=== PATIENT | male | born 1965 | race Caucasian/White ===

== ENCOUNTER 2016-06-26 21:10 | Inpatient (IN) | payer BC ==
[~2016-06-26] VITALS: Ht 182.9 cm; Wt 140.0 kg
--- NOTE | ~2016-06-26 | HP ---
PATIENT'S NAME: SARA FUCHS [facility] AGE: 50 Y [address] ROOM: [address] [place], [place] [address] LOCATION: G3N ADMIT DATE: 06/26/2016 History & Physical DISCHARGE DATE: FAMILY PHYSICIAN: Satya Arias MD ATTENDING PHYSICIAN: MARY BRUCE DATE OF SERVICE: 06/26/2016 CHIEF COMPLAINT: Postoperative wound infection, status post T9 to L2 posterior instrumented fusion done on 06/14/2016. HISTORY OF PRESENT ILLNESS: The patient is a 50-year-old male who presented to the emergency with a 2-day history of discharge from the thoracolumbar incision. The patient underwent a T9 to L2 posterior instrumented fusion for a T12 fracture by Dr. Solomon on 06/14/2016. The patient was subsequently discharged to home on 06/18/2016. The patient was doing very well until two days prior to admission when his noticed discharge from the lower part of the incision. The patient was seen by his family physician earlier today, who started the patient on antibiotics. I was called by the patient's indicating that she noticed a significant leakage from the lower part of the incision. I asked them to present to the emergency for assessment. I met them in the emergency and they both confirmed the history. The patient reported back pain. He denied pain on his lower extremities. He denied fever or chills. PHYSICAL EXAMINATION: NEUROLOGIC: The patient is cooperative and pleasant. He is alert and oriented. Motor examination of the lower extremities was grossly normal. BACK AND SKIN: It showed evidence of a long thoracic-lumbar midline incision. The sutures are still in place. Then, I noticed a significant leakage from the lower part of the incision and poor tissue healing. I also noticed erythema around the incision mostly at the lower part of the wound. LABORATORY AND IMAGING DATA: Investigations: Thoracic-lumbar spine CT scans and those showed satisfactory placement of the hardware. They also showed collection in the lower part of the wound. IMPRESSION AND PLAN: A 50-year-old male patient, who underwent the above-mentioned surgery by Dr. Solomon on 06/14/2016, is presenting with a 2-day history of leakage from the lower part of his incision. His imaging showed a subfascial collection at the lower part of the incision. Based on the patient's presentation, I think this patient has postoperative wound infection. PATIENT'S NAME: SARA FUCHS [facility] AGE: 50 Y [address] ROOM: [address] [address] LOCATION: [facility] ADMIT DATE: 06/26/2016 History & Physical DISCHARGE DATE: FAMILY PHYSICIAN: Satya Arias MD ATTENDING PHYSICIAN: MARY BRUCE Plan: 1. Admission to the hospital. 2. Pain management. 3. I recommended exploration of the lower part of the wound, incision and drainage, and possibly application of VAC dressing. 4. I discussed the situation with the patient and his and indicated that the wound examination is very concerning. I recommended the above- mentioned surgery to try to prevent extension of the infection to the existing hardware. I discussed the procedure in detail, the benefits and risks associated with it. The patient will be admitted tonight and he will undergo the procedure tomorrow. It was pleasure taking care of this patient and thanks for having us involved. MD CJ FARNSWORTH/modl /[id number] CC: MD Satya Sandoval MD D: [id number] T: [id number] HISTORY & PHYSICAL
--- NOTE | ~2016-06-26 | DS ---
PATIENT'S NAME: SARA FUCHS [facility] AGE: 50 Y [address] ROOM: [address] [address] LOCATION: [facility] ADMIT DATE: 06/26/2016 Discharge Summary DISCHARGE DATE: 07/08/2016 FAMILY PHYSICIAN: Satya Arias MD ATTENDING PHYSICIAN: Dora Franks REASON FOR ADMISSION: The patient was admitted with presumed wound infection following previous thoracolumbar fusion. TREATMENT RENDERED: The patient was taken to the operating room and underwent incision and drainage of the wound. He was eventually taken back to surgery on July 05, 2016 for closure of the I and D wound. The patient was also followed up by infectious disease doctors. He did well and was eventually well enough to go home on July 08, 2016. His incision was looking great at the time of discharge. He was ambulating with little or no pain. He will be followed up as needed in the clinic. FINAL DIAGNOSES: 1. Thoracolumbar wound infection, status post incision and drainage. 2. Status post thoracolumbar fusion for a spine fracture. DORA FRANKS MD CNO/modl /[id number] CC: Satya Arias MD d: 07/13/16 0237 t: 07/15/16 1040, DISCHARGE SUMMARY
--- NOTE | ~2016-06-26 | OR ---
PATIENT'S NAME: SARA FUCHS [facility] AGE: 50 Y [address] ROOM: [place] [address] LOCATION: [facility] ADMIT DATE: 06/26/2016 OR/Procedure Report DISCHARGE DATE: FAMILY PHYSICIAN: Satya Arias MD ATTENDING PHYSICIAN: MADHURI RODAS SURGEON: Madhuri Rodas MD KNOCKDOWN WORKER: DATE OF PROCEDURE: 06/27/2016 ANESTHESIA: General. COMPLICATIONS: None. ESTIMATED BLOOD LOSS: Minimal. PREOPERATIVE DIAGNOSIS: Postoperative wound infection. POSTOPERATIVE DIAGNOSIS: Postoperative wound infection. PROCEDURE PERFORMED: 1. Incision and drainage of a subfascial thoracolumbar wound. 2. Application of a wound VAC dressing. CLINICAL HISTORY/INDICATIONS FOR PROCEDURE: The patient is a 50-year-old male patient, who underwent T9 to L2 posterior instrumented fusion for an unstable T12 fracture by Dr. Solomon on 06/14/2016, who presented to the hospital with a 2-day history of discharge from the lower part of the incision. The wound examination was very concerning for postoperative surgical wound infection. I recommended the above-mentioned surgery to the patient. The patient was brought in for the surgery. DESCRIPTION OF PROCEDURE: The patient was seen in the preoperative care unit and the correct side was marked. Then, he was transferred to the main operating theater, was given general anesthetic and underwent endotracheal intubation without complications. Preoperative antibiotics were held. The patient was then turned to prone position on a gel-padded Brendon table and all his joints and bony prominences were securely padded. The thoracolumbar region was then prepped and draped as per usual. I started by opening the lower part of the incision. The skin sutures were removed as well as the subcutaneous and fascial sutures. Immediately, a large amount of subfascial fluid escaped under moderate pressure. The fluid collection was completely evacuated. I also obtained multiple cultures from the fluid in the deep part of the wound. I also examined the paraspinal muscles and subcutaneous tissue. Then, I felt that the tissue vascularity was PATIENT'S NAME: SARA FUCHS [facility] AGE: 50 Y [address] ROOM: [place] [address] LOCATION: [facility] ADMIT DATE: 06/26/2016 OR/Procedure Report DISCHARGE DATE: FAMILY PHYSICIAN: Satya Arias MD ATTENDING PHYSICIAN: MADHURI RODAS. Then, I proceeded to irrigate the wound. The wound was irrigated with bacitracin-containing irrigation. Then, I applied a wound VAC dressing to the lower part of the wound to try to improve the tissue vascularity and treat the infection. The VAC was applied and it was tested. The VAC dressing worked very well. The upper part of the wound was covered with dressing. The patient was then turned to supine position and extubated. At the end of the operation, the instrument and sponge counts were correct. The patient tolerated the operation without complications. MADHURI RODAS MD AB/modl /[id number] CC: MD Satya Sandoval MD d: 06/27/16 2348 t: 06/29/16 1237, OPERATIVE SUMMARY
--- NOTE | ~2016-06-26 | OR ---
PATIENT'S NAME: SARA FUCHS [facility] AGE: 50 Y [address] ROOM: [place] [address] LOCATION: [facility] ADMIT DATE: 06/26/2016 OR/Procedure Report DISCHARGE DATE: FAMILY PHYSICIAN: Satya Arias MD ATTENDING PHYSICIAN: MADHURI RODAS SURGEON: Madhuri Rodas MD LEARNING DISABILITIES TEACHER: DATE OF PROCEDURE: 07/01/2016 ANESTHESIA: General. COMPLICATIONS: None. ESTIMATED BLOOD LOSS: Minimal. PREOPERATIVE DIAGNOSIS: Postoperative thoracolumbar wound infection, existing VAC dressing. POSTOPERATIVE DIAGNOSIS: Postoperative thoracolumbar wound infection, existing VAC dressing. PROCEDURES: 1. Incision and drainage of thoracolumbar subfascial wound for infection. 2. Application of VAC dressing. CLINICAL HISTORY: The patient is a 50-year-old male patient, who underwent T9- L2 posterior instrumented fusion for T12 fracture on June 14, 2016, by Dr. Solomon; was admitted to the hospital on June 26, 2016, with significant leakage from his wound. He was taken to surgery on June 27 and the lower part of the wound was opened. Immediately, a large amount of subfascial fluid escaped under moderate pressure. Multiple cultures were taken from the fluid and the deep tissue. VAC dressing was applied and the patient was started on antibiotics. The wound culture came back positive for staphylococcus epidermidis that is sensitive to vancomycin. The patient's antibiotics were changed to daptomycin. I recommended the above mentioned surgery to the patient and his to explore the wound and hopefully close it. I discussed the risks and benefits associated with it. The patient was interested in proceeding, so he was brought in for the surgery. DESCRIPTION OF PROCEDURE: The patient was seen in the preoperative care unit and the correct side was marked. Then, he was transferred to the main operating theater, was given general anesthetic and underwent endotracheal intubation without complications. Preoperative antibiotics were continued. The patient was then turned to prone position on a gel padded Brendon table and all his joints and bony prominences were securely padded. The VAC PATIENT'S NAME: AFSHIN [facility] AGE: 50 Y [address] ROOM: [address] [address] LOCATION: [facility] ADMIT DATE: 06/26/2016 OR/Procedure Report DISCHARGE DATE: FAMILY PHYSICIAN: Satya Arias MD ATTENDING PHYSICIAN: MADHURI RODAS dressing was removed. Immediately, I noticed significant erythema along the closed part of the wound. I also noticed avascular tissue along the incision. The surgical site was then prepped and draped as per usual. I started by removing the VAC sponge from the lower part of the wound. The tissues in that region were healthier than the first time. Then, I proceeded to open the rest of the incision. The existing sutures were removed. Subcutaneous sutures were also removed and immediately, I came across very avascular subcutaneous tissue with obvious signs of infection. The thoracolumbar fascia sutures were also removed and the hardware was exposed. I also noticed significant avascularity of the paraspinal muscles. I first started by removing the autograft/allograft bone along the hardware. I then removed all the avascular tissue. Then, the wound was copiously irrigated with bacitracin-containing irrigation. Hemostasis was maintained. Then, I proceeded to apply a new VAC dressing. The sponges were placed in. The dressing was applied and the VAC was tested. We had good seal and no leakage. I was satisfied with all steps of the operation. At the end of the operation, the instrument and sponge counts were correct. The patient tolerated the operation without any complications. MADHURI RODAS MD AB/modl /[id number] CC: MD Dora Natarajan MD d: 07/01/16 1840 t: 07/02/16 0954, OPERATIVE SUMMARY
--- NOTE | ~2016-06-26 | PUL ---
PATIENT'S NAME: SARA FUCHS [facility] AGE: 50 Y [address] ROOM: [address] [address] LOCATION: G3N ADMIT DATE: 06/26/2016 Pulmonary DISCHARGE DATE: FAMILY PHYSICIAN: Satya Arias MD ATTENDING PHYSICIAN: MARY BRUCE NAME OF PROCEDURE: Overnight Pulse Oximetry DATE OF PROCEDURE: June 28 to June 29, 2016 REASON FOR EXAM: Nocturnal hypoxemia RESULTS: The test was performed on room air. The recording time was 8 hours, 6 minutes, and 24 seconds, with a total sampling time of 8 hours, 6 minutes, and 12 seconds. The highest pulse was 101, lowest pulse was 56, with a mean pulse of 65. The highest SpO2 was 97%, lowest SpO2 was 69%, with a mean SpO2 of 89.9%. The patient spent 1 hour, 50 minutes and 8 seconds with SpO2 less than 89%, representing 22.7% of the total sleep time. The desaturation event index was significantly elevated 40.2. PHYSICIAN INTERPRETATION: The patient has evidence of significant nocturnal hypoxia and would qualify for supplemental oxygen as per Medicare criteria. However, because of the severity of his nocturnal hypoxia with an elevated desaturation event index a sleep study is recommended at this time. MD VESNA BURGOS/suzette /[id number] dtt: 07/03/16 1522 , QUIRINO MARRERO dtd: 07/03/16 1326
--- NOTE | ~2016-06-26 | ER ---
PATIENT'S NAME: SARA FUCHS [facility] AGE: 50 Y [address] ROOM: [place] [address] LOCATION: [facility] ADMIT DATE: 06/26/2016 ER/Outpatient Report DISCHARGE DATE: FAMILY PHYSICIAN: Satya Arias MD ATTENDING PHYSICIAN: MARY RODAS TIME: I saw the patient at 2120 hours. CHIEF COMPLAINT: Mid back incisional drainage. HISTORY OF PRESENT ILLNESS: The patient is a 50-year-old male, who I believe has had surgery on 06/14/2016. The patient has had some drainage in the lower part of his incision. Initially, he saw his personal physician, Dr. Satya Arias in the clinic today and started on cephalexin. We got a call here in the emergency room from Dr. Rodas that the patient was coming to the emergency room for evaluation. Dr. Rodas wanted a CBC with differential, complete chemistry profile, clot bank with blood type and screen, Protime, PTT, 2-view chest x- ray, EKG, and a CT scan of the T6 to L5 noncontrast. Dr. Rodas was thinking that he would most likely take this patient back to operation, open his wound and irrigate the wound. The patient on arrival was awake and alert. He denied any recent fever, chills, sweats. No rigors. No pain in his back. No abdominal pain, nausea, vomiting, diarrhea. No chest pain, shortness of breath. No lightheadedness, dizziness, syncope, or near syncope. No fall or trauma. No recent colds, coughs, flu, fever, chills, or sweats. HOME MEDICATIONS: See attached medication list. ALLERGIES: NONE. SOCIAL HISTORY: The patient has a history of tobacco use, stopped 06/08/2016. Nondrinker. PAST MEDICAL HISTORY: Significant for dyslipidemia, sls-tgrsiqy-dlpjxzywr diabetes mellitus type 2, remote tobacco abuse. PAST SURGICAL HISTORY: Thoracic back surgery, 06/14/2016. REVIEW OF SYSTEMS: PATIENT'S NAME: SARA FUCHS [facility] AGE: 50 Y [address] ROOM: [place] [address] LOCATION: [facility] ADMIT DATE: 06/26/2016 ER/Outpatient Report DISCHARGE DATE: FAMILY PHYSICIAN: Satya Arias MD ATTENDING PHYSICIAN: MARY RODAS All systems reviewed by me are negative with the exception of those discussed in the history of present illness. PHYSICAL EXAMINATION: VITAL SIGNS: Temperature 98.1 tympanic, pulse 83, respirations 16, blood pressure 140/63, O2 saturation on room air is 93%. HEAD: Normocephalic. EYES, EARS, NOSE, AND THROAT: Clear, mucous membranes moist. NECK: No nuchal rigidity. No findings of adenopathy. No tenderness. SPINE: No deformities, does have an incision, mid thoracic back to the lumbar spine. There is minimal redness. There is no active drainage that I could see one on my examination. The dressings that he had on, when I examined him were dry. LUNGS: Clear. HEART: Regular. ABDOMEN: Soft, nondistended, nontender. Active bowel sounds. EXTREMITIES: Moves all 4 extremities. No peripheral edema, cyanosis, or deformity. Neurovascular intact. SKIN: Clear. Dr. Rodas came to the emergency department a few minutes after I got done examining the patient. IMPRESSION: Drainage from recent surgical incision, thoracic back. PLAN: We will proceed on Dr. Rodas's recommendations and discussion with the patient. Plan would be whether the patient is going to be taken back to operation or not, but that will be up to the patient and Dr. Rodas. MD NAYA SALTER/modl /[id number] d: 06/27/16 0634 t: 06/27/16 181, OUTPATIENT REPORT
--- NOTE | ~2016-06-26 | OR ---
PATIENT'S NAME: SARA FUCHS [facility] AGE: 50 Y [address] ROOM: [address] [address] LOCATION: [facility] ADMIT DATE: 06/26/2016 OR/Procedure Report DISCHARGE DATE: FAMILY PHYSICIAN: Satya Arias MD ATTENDING PHYSICIAN: Dora Franks SURGEON: Dora Franks MD OPERATOR BEARER SYSTEMS: Leah Hernández. DATE OF PROCEDURE: 07/05/2016 PREOPERATIVE DIAGNOSIS: Lumbar fusion wound infection. POSTOPERATIVE DIAGNOSIS: Lumbar fusion wound infection. PROCEDURE PERFORMED: Closure of lumbar fusion incision performed for wound I and D. ANESTHESIA: General. ANESTHESIA PROVIDER: Ricky Birch CRNA. HISTORY: This patient is a 50-year-old male, who underwent thoracolumbar fusion for T12 fracture couple of weeks ago. The patient presented with drainage from his incision. There was a feeling that the wound was infected. He was taken to the operating room and underwent incision and drainage of his wound. It was necessary to do the incision and drainages a second time as he continued to drain after the first one. A wound VAC was placed. The wound VAC has now been in for five days. The patient was brought back to the operating room to have definitive closure of the incision. The procedure, benefits, and risks were discussed with the patient and family members and with his consent, he was brought to surgery. PROCEDURE IN DETAIL: In the operating room, the patient was placed in a supine position. Anesthesia was induced and he was intubated. He was then rolled to a prone position on a Brendon table taking care to protect all pressure points. The dressing was removed from the incision and the wound VAC was removed. The foam pieces that were also placed in the wound for absorption were removed as well. The whole area was then prepped and draped in a sterile fashion. The Betadine that was filling the incision was irrigated out. The incision edges looked fresh and healthy. There was no purulent drainage. The incision was then closed primarily with Vicryl sutures on the inside and Prolene was used to approximate the skin edges. A sterile dressing was applied. The patient was rolled back to a supine position. His anesthesia was reversed. He was extubated and taken back to the recovery room to PATIENT'S NAME: SARA FUCHS [facility] AGE: 50 Y [address] ROOM: [place] [address] LOCATION: [facility] ADMIT DATE: 06/26/2016 OR/Procedure Report DISCHARGE DATE: FAMILY PHYSICIAN: Satya Arias MD ATTENDING PHYSICIAN: Dora Franks complete his recovery. Estimated blood loss was less than 100 mL and there were no apparent intraoperative complications. I was present and performed every aspect of this procedure, and the swabs, needles, and instruments were all accounted for the end of the case. I expect the patient's incision to heal with this procedure. He will be continued on antibiotic treatment for about four weeks. DORA FRANKS MD CNO/modl /[id number] CC: Satya Arias MD d: 07/06/16 0041 t: 07/12/16 1310, OPERATIVE SUMMARY
--- NOTE | ~2016-06-26 | CON ---
PATIENT'S NAME: SARA FUCHS [facility] AGE: 50 Y [address] ROOM: [place] [address] LOCATION: [facility] ADMIT DATE: 06/26/2016 Consultation DISCHARGE DATE: FAMILY PHYSICIAN: Satya Arias MD ATTENDING PHYSICIAN: MADHURI RODAS DATE OF CONSULTATION: 07/03/2016 REFERRING PHYSICIAN: Madhuri Rodas MD REASON FOR CONSULTATION: Postoperative lumbar wound infection. SUBJECTIVE: Sara is a pleasant 50-year-old male whom I was asked to see today in consultation by Dr. Madhuri Rodas for further evaluation and treatment recommendations regarding a postoperative lumbar wound infection. Sara was admitted on this admission on 06/26/2016 with drainage and inflammation related to his thoracolumbar incision. He had previously undergone a T9 to L2 posterior instrumented fusion for T12 fracture on 06/14/2016. About two days prior to this admission, he had drainage. He eventually underwent surgeries on 06/27/2016 and 07/02/2016, with the findings of significant amount of subfascial fluid. Cultures were positive for Staphylococcus coagulase negative. He was treated initially with vancomycin and then changed over to daptomycin. He is currently doing reasonably well, except for pain. PAST MEDICAL HISTORY: As above, obesity, type 2 diabetes. CURRENT MEDICATIONS: See the MAR for complete listing. His current antibiotic is daptomycin. ALLERGIES: NOT CURRENTLY AVAILABLE. SOCIAL HISTORY: No tobacco or alcohol abuse history. He does reportedly chew tobacco. FAMILY HISTORY: Unremarkable, noncontributory to current illness. REVIEW OF SYSTEMS: A complete review of systems was carried out, and was remarkable only as noted. OBJECTIVE: PATIENT'S NAME: SARA FUCHS [facility] AGE: 50 Y [address] ROOM: [address] [address] LOCATION: [facility] ADMIT DATE: 06/26/2016 Consultation DISCHARGE DATE: FAMILY PHYSICIAN: Satya Arias MD ATTENDING PHYSICIAN: MADHURI RODAS GENERAL: He appeared pleasant and comfortable and was in no distress. VITAL SIGNS: Temperature is 36.8, blood pressure 135/61, pulse 70. HEENT: Posterior pharynx clear, no adenopathy or thyromegaly. Cranial nerves are intact. NECK: Supple. CHEST: Clear to auscultation. CARDIOVASCULAR: Regular rate and rhythm without S3, S4, or murmur. ABDOMEN: Soft, nontender, without hepatosplenomegaly or masses. EXTREMITIES: The posterior thoracolumbar surgical site had a VAC in place, very slight swelling and erythema surrounding this. NEUROLOGIC: Strength and sensation grossly intact. PSYCHIATRIC: Behavior and affect appropriate. LABORATORY DATA: Creatinine 1.0. Liver function tests normal. Hemoglobin A1c 6.7. White count 11.1. Microbiology - wound cultures, 06/27/2016, are positive for Staphylococcus epidermidis (sensitive to tetracycline, resistant to oxacillin, sensitive to vancomycin at 1). Radiology - CT of the lumbar wound, 06/26/2016, shows postoperative changes with pedicle screws and posterior rods, no others major findings. IMPRESSION: Postoperative lumbar wound infection - by description, the infection does appear to be down to the surgical site but not necessarily involving the deeper bony structures or hardware. As this was an early infection, hopefully it has not progressed to involve hardware, which would be catastrophic complication and might necessitate hardware removal. Other medical conditions are stable, as noted above. Of note, this is obesity and diabetes, which will compromise wound healing and resolution of infection. PLAN: We will plan on 4 to 8 weeks of intravenous antibiotics with daptomycin at 6 mg/kg daily. I have asked the lab to check susceptibilities for this, although it is very likely sensitive. We will monitor his clinical status, as well as a sedimentation rate and C-reactive protein. If he makes rapid progress and these normalize quickly, we could consider oral antibiotics in a short period of time; otherwise, we will plan on a longer course. He may end up on several weeks to months of oral antibiotic therapy, as well. Given the presence of hardware, we will add rifampin to his current regimen. PATIENT'S NAME: SARA FUCHS [facility] AGE: 50 Y [address] ROOM: [place] [address] LOCATION: [facility] ADMIT DATE: 06/26/2016 Consultation DISCHARGE DATE: FAMILY PHYSICIAN: Satya Arias MD ATTENDING PHYSICIAN: MADHURI RODAS He will return for followup with me or one of my colleagues in two weeks, we can work on outpatient antibiotic arrangements. Thank you for this consultation. I am available to discuss the case by phone at [phone]. MD ИРИНА CIFUENTES/hari /[id number] CC: Madhuri Rodas MD d: 07/03/16 2250 t: 07/04/16 0813, CONSULTATION REPORT
[~2016-06-26 21:10] MED LIST: COLACE100 MG PO; GLIMEPIRIDE2 MG PO; GLUCOPHAGE500 MG PO; PERCOCET 10-321 EACH PO; PRAVACHOL40 MG PO
[2016-06-26 21:51] LABS: BASOPHIL # 0.1 K/uL (0.0-0.2); BASOPHIL % 0.5 %; EOSINOPHIL # 0.4 K/uL (0.0-0.5); EOSINOPHIL % 3.4 %; HEMATOCRIT 40.6 % (37.0-53.0); HEMOGLOBIN 12.8 g/dL (12.0-17.0); IMMATURE GRANULOCYTE # 0.1 K/uL (0.0-0.3); IMMATURE GRANULOCYTE % 0.7 %; LYMPHOCYTE # 2.2 K/uL (0.8-4.0); LYMPHOCYTE % 19.4 %; MCH 26.5 pg (27.0-34.0); MCHC 31.5 gm/dL (32.0-36.5); MCV 84.1 fl (83.0-98.0); MONOCYTE # 0.9 K/uL (0.0-1.0); MONOCYTE % 7.7 %; NEUTROPHIL # (ANC) 7.9 K/uL (1.4-9.0); NEUTROPHIL % 68.3 %; NRBC % 0 /100WBC (0-0.00); PLATELET COUNT 394 K/uL (150-450); RBC 4.83 M/uL (4.00-6.00); RDW-CV 14.1 % (11.9-14.6); WBC 11.5 K/uL (4.0-11.0)
[2016-06-26 22:01] LABS: PROTIME 10.7 SECONDS (9.6-11.1); PTT 27 SECONDS (25-32)
[2016-06-26 22:07] LABS: ALBUMIN 3.1 gm/dL (3.5-5.0); ALK PHOS 134 IU/L (33-138); ALT 28 IU/L (12-78); ANION GAP 12.4 (10.0-19.0); AST 18 IU/L (10-40); BLOOD UREA NITROGEN 14 mg/dL (6-24); CALCIUM 8.7 mg/dL (8.5-10.5); CHLORIDE 103 mMol/L (96-110); CO2 29 mMol/L (22-32); ESTIMATED GFR (MDRD EQUATION) > 60; POTASSIUM 4.4 mMol/L (3.7-5.1); SODIUM 140 mMol/L (135-145)
[2016-06-26 22:08] LABS: TOTAL BILIRUBIN 0.3 mg/dL (0.0-1.5)
[2016-06-26] MEDS ORDERED: MILK OF MA400 MG/5 M PO (23:47)
[2016-06-26] MEDS ORDERED: OMEPRAZOLE40 MG PO (23:49)
[2016-06-26] MEDS ORDERED: KEFLEX500 MG PO (23:50)
--- NOTE | 2016-06-27 05:10 | NUR ---
ADMITTED @ 2330 LAST NIGHT FROM ER, PATIENT HAD A T9-L2 FIXATION LAST WEEK AND WAS ADMITTED FOR I&D TODAY WITH DR FRANKS FOR POSSIBLE INFECTION TO SITE, DSG WAS CHANGED IN ER AND HAS A SMALL QUARTER SIZE DRAINAGE ON IT AND THIS WAS MARKED LAST NIGHT AND HAS NOT SPREAD SINCE THAT TIME. PATIENT RATES PAIN FROM 3-5/10 AND WAS GIVEN PERCOCET @0500 THIS AM. LEFT HAND PIV RUNNING NS W/K+ 20MEQ @90ML/HR AND PATIENT HAS BEEN NPO SINCE MIDNIGHT. UP TO BATHROOM/URINAL WITH GOOD OUTPUT AND ASSIST FROM SPOUSE WHO IS IN ROOM. PATIENT HAS HX OF PROBLEMS WITH CONSTIPATION AND NOW HAS SCHEDULED REGLAN AND LD WAS @0330 THIS MORNING.
--- NOTE | 2016-06-27 12:45 | NUR ---
Introduced self and role of care management to patient's . Patient sleeps during our conversation. They live near [place] with 2 of their 3 children. She says he had been doing well at home until yesterday. She says he has a walker, grab bars, and other DME at home. He is going to OR later today. She says they are planning on him going home when ready for discharge. Will follow.
--- NOTE | 2016-06-27 13:45 | NUR ---
Significant Event: Patient went to OR at 1345. Dressing intact to back with small amount of drainage. CSM WNL. Up to BR with walker and stanby assist Follow up:
--- NOTE | 2016-06-28 05:13 | NUR ---
POD#1 I&D OF BACK, WOUND VAC IN PLACE AND 300 TOTAL OUT THIS SHIFT, GOOD CSMS, RIGHT HAND PIV SALINE LOCKED, GOOD PO INTAKE/URINE OUTPUT AND NO BM THIS SHIFT. VS WNL BUT WEARS O2 AT NIGHT AND WILL BE GOING FOR A SLEEP STUDY OUTPATIENT IN THE FUTURE. BLOOD SUGAR @2100 WAS 155 AND NO SS INSULIN REQUIRED. PAIN CONTROLLED WITH PERCOCET LD@2145, FLEXERIL @1700 AND MOM GIVEN @2145 FOR CONSTIPATION. SPOUSE IN ROOM AND VERY HELPFUL WITH PATIENT CARES AND TURNING FOR PAIN CONTROL. PLANS TO TAKE PATIENT BACK TO SURGERY THE FIRST PART OF NEXT WEEK TO CLOSE THE WOUND. PLAN TO DC HOME ON DISCHARGE.
[2016-06-28 05:29] LABS: BASOPHIL % 0.2 %; EOSINOPHIL # 0.1 K/uL (0.0-0.5); EOSINOPHIL % 0.9 %; HEMATOCRIT 40.8 % (37.0-53.0); HEMOGLOBIN 12.5 g/dL (12.0-17.0); IMMATURE GRANULOCYTE # 0.1 K/uL (0.0-0.3); IMMATURE GRANULOCYTE % 0.6 %; LYMPHOCYTE # 1.9 K/uL (0.8-4.0); LYMPHOCYTE % 13.1 %; MCHC 30.6 gm/dL (32.0-36.5); MONOCYTE # 0.9 K/uL (0.0-1.0); MONOCYTE % 6.3 %; MPV 10.2 fl (9.4-12.4); NEUTROPHIL # (ANC) 11.4 K/uL (1.4-9.0); NEUTROPHIL % 78.9 %; NRBC % 0 /100WBC (0-0.00); PLATELET COUNT 363 K/uL (150-450); RDW-CV 13.8 % (11.9-14.6); WBC 14.4 K/uL (4.0-11.0)
--- NOTE | 2016-06-28 07:20 | NUR ---
Significant Event: Pt was admitted on 24 of June from [facility]. This gentleman had been having difficulty with walking and also with fine motor skills to upper extremities. He had called his daughter to come help him move positions on his couch on the 19 of June. When she arrived patient was unable to stand and was incontinent of urine. He is an alcoholic who prior to admission had been sober for eight days and stated he had already been through withdrawl. Doctor Neha saw him on the and felt he should proceed with surgery r/t severe cervical stenosis and significant deconditioning. Pt did have surgery on the . He is AOx3, impulsive at times. Bed/chair on at all times. Taking PO and voiding without difficulty. UP with one assist, GB, walker. [place] barrier dressing C/D/I to neck. [place] collar on at all times. [place] for pain PRN. Only has had complaints for a little discomfort in his shoulders. CSM WNL to upper and lower ext. Has shown improvement since admission and OR. Plan will be to transfer to [facility] today at 0900. Follow up:
--- NOTE | 2016-06-28 14:51 | NUR ---
Significant Event: PT AOX3. VSS ON RA. DRESSING TO BACK C/D/I. WOUND VAC CANISTER CHANGED. AMBULATES WITH SBA- OFTEN HELPS, WEARS TLSO BRACE WHEN UP IN HALLS. CSM WNL. AC HS ACCUCHECKS, NO SSI NEEDED TODAY. TOLERATING DIABETIC DIET. IV SALINE LOCK TO R HAND, CONTINUES ON IV AND PO ABX. PRN PERCOCET, 1 TAB LAST AT 1024. DIGITAL REMOVAL OF SMALL BM, DULCOLAX SUPPOSITORY GIVEN WITH LARGE RESULTS. PLAN IS BACK TO OR ON FRIDAY TO CLOSE WOUND, THEN HOME ON DISCHARGE. Follow up: MONITOR O2 SATS AT NIGHT
--- NOTE | 2016-06-29 04:47 | NUR ---
Patient alert and oriented x3, Dr. Rodas called Staph infection in back, antibiotics were changed, started ancef at 0400, to have picc line placed this am, has wound vac in place to back with 50ml of drainage, csm with in normal limits, not happy about diagnosis or being in hospital, helps with majority of cares and he prefers that.
--- NOTE | 2016-06-29 19:26 | NUR ---
Significant Event: patient alert and oriented x3. ambulated in casey several times this shift, TLSO brace on with activity. received percocet for c/o back pain, rates 5-0 on pain scale. wound vac to back with approximately 50ml out gauze dressing to back with scant amount of old drainage. acchecks 104 at breakfast, 158 at lunch, 126 at supper. to have picc placed on Friday. Follow up: possible surgey on Friday.
--- NOTE | 2016-06-30 03:58 | NUR ---
Significant Event: Pt is alert and oriented. Up SBA with family or staff, moving well. Will have surgery on Mon, Dr Rodas will talk to pt this AM about it. Pain is controlled with Percocet 10. Takes 2 tabs at HS and 1 tab during the day. Drinking and urinating well. PICC on Mon. Wound Vac minimal amount. c/o constipation but declining suppository so far, may have one this am. Will update. Follow up:
[2016-06-30 06:03] LABS: BASOPHIL % 0.4 %; EOSINOPHIL # 0.3 K/uL (0.0-0.5); EOSINOPHIL % 3.7 %; HEMATOCRIT 41.1 % (37.0-53.0); HEMOGLOBIN 12.7 g/dL (12.0-17.0); IMMATURE GRANULOCYTE % 0.4 %; LYMPHOCYTE # 1.8 K/uL (0.8-4.0); LYMPHOCYTE % 21.2 %; MCH 26.2 pg (27.0-34.0); MCHC 30.9 gm/dL (32.0-36.5); MCV 84.7 fl (83.0-98.0); MONOCYTE # 0.7 K/uL (0.0-1.0); MONOCYTE % 8.8 %; MPV 9.8 fl (9.4-12.4); NEUTROPHIL # (ANC) 5.4 K/uL (1.4-9.0); NEUTROPHIL % 65.5 %; NRBC % 0 /100WBC (0-0.00); PLATELET COUNT 359 K/uL (150-450); RBC 4.85 M/uL (4.00-6.00); RDW-CV 14.1 % (11.9-14.6); WBC 8.3 K/uL (4.0-11.0)
[2016-06-30 06:24] LABS: ALK PHOS 116 IU/L (33-138); ALT 16 IU/L (12-78); AST 13 IU/L (10-40); BLOOD UREA NITROGEN 11 mg/dL (6-24); CALCIUM 8.5 mg/dL (8.5-10.5); CHLORIDE 103 mMol/L (96-110); CO2 31 mMol/L (22-32); ESTIMATED GFR (MDRD EQUATION) > 60; SODIUM 139 mMol/L (135-145); TOTAL PROTEIN 6.7 g/dL (6.0-8.4)
[2016-06-30 06:26] LABS: TOTAL BILIRUBIN 0.5 mg/dL (0.0-1.5)
--- NOTE | 2016-06-30 17:06 | NUR ---
Significant Event: Patient is scheduled for I&D of his back tomorrow with Dr. Rodas. Permits signed and surgical checklist started. Last Maxwell given at 1645. VSS. 20ml out of wound vac. Did a Dulcolax suppository, has had 2 BMs this shift. Colace changed from PRN to scheduled. No insulin needed for blood sugars this shift. bedside most of the shift. Stand by assist with walker, does very well. Walked in hallway once. NPO at midnight and will start IV fluids at that time. New 18G IV started right FA. Follow up: Finish preop checklist, NPO and IV fluids
--- NOTE | 2016-07-01 07:01 | NUR ---
Significant Event: Pt alert and oriented. Up with SBA and walker. Family assisted. Percocet for pain, two tabs at HS. I&D today, checklist done. Wound vac on. Minimal output. IV fluids started at 0030, NPO since 0000. Follow up:
--- NOTE | 2016-07-01 11:44 | NUR ---
A-SCREENED D/T LOS I&D OF BACK TODAY; WOUND VAC IN PLACE (MIN.OUTPUT) (+)BM AFTER DULCOLAX SUPPOSITORY GIVEN; HAS HX OF CONSTIPATION HT: 72 IN. WT: 140.0 KG BMI: 41.8 LABS: NA 139, K+ 4.0, GLU 103, BUN 11, HEALTH RESEARCHER 1.0, ALB 3.0 MEDS: REGLAN, NOVOLOG (MILD SS), COLACE, CUBICIN, FLEXERAL, ZOFRAN, MOM, OXYCODONE, PROTONIX DIET RX: NPO FOR OR TODAY; PREVIOUSLY, CONSISTENT CARB. PO INTAKE WAS 75-100% EST NUTR NEEDS: 6045-4144 KCALS (11-14 KCALS/KG) 122-162 GM PROTEIN (1.5-2.0 GM/KG IBW) 1 ML FLUID/KCAL D-AT NUTRITION RISK W/INCREASED PROTEIN NEEDS R/T ALTERED SKIN INTEGRITY AEB WOUND TO BACK, WOUND VAC. I-START DUNG BID TO PROMOTE WOUND HEALING M/E-GOAL: PO INTAKE >/=75% FOR DURATION OF ADMIT 1)F/U PO INTAKE, SUPPLEMENT, SKIN, AND POC IN 4-6 DAYS 2)ASSIST NEEDED
[2016-07-01 12:45] LABS: HEMATOCRIT 40.1 % (37.0-53.0); HEMOGLOBIN 12.4 g/dL (12.0-17.0); MCH 26.3 pg (27.0-34.0); MCHC 30.9 gm/dL (32.0-36.5); MCV 85.1 fl (83.0-98.0); MPV 9.6 fl (9.4-12.4); RBC 4.71 M/uL (4.00-6.00); RDW-CV 14.1 % (11.9-14.6); WBC 11.1 K/uL (4.0-11.0)
--- NOTE | 2016-07-01 15:12 | NUR ---
patient to surgery at 0800. belongings transferred to room 3306.
--- NOTE | 2016-07-01 17:33 | NUR ---
Significant Event: From PACU at 1210. Dangled at bedside with one assist. TLSO brace when out of bed, may apply while sitting on edge of bed. Percocet 2 tabs last at 1645, Flexeril 10mg at 1230. PICC line placed to R) upper arm this afternoon. IV infusing to R) hand. Voids without difficulty. Remians on 2L 02 as he desats to upper 80's on room air. Follow up:
--- NOTE | 2016-07-02 04:18 | NUR ---
Patient alert and oriented, pleasant and cooperative, at bedside helps with cares, 150ml out of wound vac canister was changed, taking percocet for pain control last dose give at 0400 one tab, was slightly hypotensive in the night when patient layed on side to sleep, has rested well
--- NOTE | 2016-07-02 10:28 | NUR ---
[id number] [facility] Students, Monitored assessment, medications administration and documentation
--- NOTE | 2016-07-02 14:00 | NUR ---
1400 Introduced self/role to patient and [place] . [place] Also present TORITO Reddy medical assistant internal medicine. Attempted to talk to them about HHC options in their area as patient might need to go home with IV meds, wound vac, central line and have weekly lab draws. Patient was not open to this as he is not for sure what he will need. leaning [facility] if something would be needed. I attempted to explained the financial aspect and that we could have the HHC agency look into potential out of pocket costs however patient still unwilling to have this conversation at this time. He needed to use the bathroom so we were excused. 1415 Spoke to patients Nurse Florinda and she feels like he will be here thru the weekend so will put on the hold the discussion about HHC. 1420 Followed up with patients , let her know we could visit about HHC in a few days once more is determined about his care.
--- NOTE | 2016-07-02 14:30 | NUR ---
was asked by MALINI Barnett charge nurse to change patient's PICC line dressing and review with his as a precautionary measure in case she needs to do something with the dressing once he gets home. there was quite a bit of dry blood under the dressing, the length of the PICC line to the stat lock. dressing was removed with sterile gloves, new sterile gloves applied, site cleaned with prep stick in the dressing change kit. most of the dried blood is removed. patient is slightly erythematous about 1 cm nez perce at insertion site. new dressing is re-applied. masks were worn by myself, and patient. patient's has a strong background of dressing changes to her own port and their daughter had dressing changes prior to her at age 3. Patient darius well. and patient deny questions at this time. call light is within reach.
--- NOTE | 2016-07-02 17:29 | NUR ---
Significant Event: Ambulates with one assist, walker and gaitbelt. TLSO on when out of bed. Voids without diffiuclty. Wound Vac to back with 200mL bloody drainage out. Percocet 1 tab last at 1520. CSM WNL. at bedside and assists with all cares. Follow up:
--- NOTE | 2016-07-03 05:41 | NUR ---
Significant Event: Dressing is clean, dry and intact. CSM WNL. Voids without difficulty. Standby assist. Family at bedside. Percocet last at 0435. Has a PICC with good blood return. Back brace. Follow up:
--- NOTE | 2016-07-03 10:31 | NUR ---
[id number] [facility] Student, monitored assessment, documentation and medication administraiton
--- NOTE | 2016-07-03 13:56 | NUR ---
Significant Event: AOx3. VSS. CSM WNL. PICC line flushed with good blood return in R) upper arm. AC&HS accuchecks. TLSO brace on when walking in halls. Wound vac intact to back. Possible OR friday. Up with 1 assist with walker. Percocet givne for pain. at bedside. Follow up:
--- NOTE | 2016-07-04 05:02 | NUR ---
Patient alert and oriented x3, very pleasant and cooperative, has rested well, 100ml out of wound vac, woke up at 0430 for blood draw, said he wasn't feeling right, possibly having muscle pain in his left side given two percocet at this time.
--- NOTE | 2016-07-04 16:36 | NUR ---
Significant Event: Percocet 10/325mg one tab x2 last at 1446. PICC line to rt inner arm. 150ml out wound vac. Up to chair/ BR with walker and one assist. CSM WNL. Planning OR Friday. Follow up:
--- NOTE | 2016-07-05 04:39 | NUR ---
Shift Summary: Patient can ambulate with one assist/walker. Has wound vac to lumbar back. Had 50ml seriosang drainage. Taking 2 pain pills at a time for pain control. Patient diabetic and on accuchecks AC&HS, on mild SS. Will go to surgery again Friday.
--- NOTE | 2016-07-05 11:52 | NUR ---
A - NUT F/U. WOUND VAC TO BACK. POSSIBLE OR ON SAT. LABS: ACCUCHECK WNL-REAS, CRP 2.10 MEDS: BOWEL/NAUSEA, REGLAN, PROTONIX, SSI, DAPTOMYCIN DIET: NPO. WAS DIABETIC. INTAKE: 75-100%. DUNG BID NEEDS: 6509-6180 KCAL, 122-162 G PRO D - INCREASED PRO NEEDS R/T HEALING AEB WOUND VAC TO BACK. I - GOAL FOR INTAKE TO REMAIN 75-100% FOR DURATION OF STAY. WILL CONTINUE DUNG BID. M/E - WILL MONITOR INTAKE, SKIN. F/U IN 5-7 DAYS.
--- NOTE | 2016-07-05 15:24 | NUR ---
PATIENT AWAITING SURGERY THIS AFTERNNO BY DR. FRANKS. WOUND VAC IN PLACE. TLSO WHEN AMBULATING. PICC LINE INTACT TO LEFT UPPER ARM. SL TO RA. CSM ADEQUATE. IN ROOM . PERCOCET AT 1500.
--- NOTE | 2016-07-05 16:23 | NUR ---
patient belongings sent to room 3223, patient to surgery at 1545
--- NOTE | 2016-07-06 05:17 | NUR ---
Significant Event: Dressing is clean, dry and intact. CSM WNL. 1-2 assist. Voids without difficulty. Back brace. Percocet 2 tabs last at 0254. PICC with good blood return. On 1 L of oxygen nasal cannula. Family at bedside. Accu check. Follow up:
--- NOTE | 2016-07-06 17:22 | NUR ---
CSM WNL. DRESSING TO BACK C/D/I. HAS HAD 2 NORCO THREE TIMES THE LAST TIME AT 1500. PICC LINE INTACT. REMAIND ON ACCUCHECKS DID NEED 2 UNITS AT SUPPERTIME FOR AN ACCUCHECK OF 211. WALKED A FEW STEPS TODAY WITH HIS TLSO BRACE ON. UP IN THE W/C AND OUTSIDE FOR A LITTLE WHILE THIS AFTERNOON. AT BEDSIDE.
--- NOTE | 2016-07-07 06:22 | NUR ---
Shift Summary: Patient can ambulate with one assist. Good pain control with 2 percocet q 3hr. Encouraged patient to trial a muscle relaxer today. Has PICC to right upper arm that flushes well and has good blood returne. He is diabetic and on AC&HS accuchecks. He is voiding without difficulty. Tolerating regular diet well. Plans to go home Friday on Home Infusion.
--- NOTE | 2016-07-07 15:34 | NUR ---
PT ALERT AND ORIENTED. UP IN THE HALLS AND IN THE ROOM WITH MINIMAL HELP DOES WELL. IN THE ROOM WITH PT DOES MOST OF HIS CARES. DULCOLAX SUPP TODAY WITH SMALL RESULTS. PERCOCET FOR PAIN 2 TABS AT A TIME. DRESSING TO LOWER BACK INTACT. PICC TO RT ARM AND SALINE LOCK IN RT FOREARM. WILL GO HOME FRIDAY ON IV ANTIBIOTICS AND HOME HEALTH. STARTED FLEXERIL TODAY. COOPERTIVE WITH CARES.
--- NOTE | 2016-07-08 04:18 | NUR ---
Pt A&Ox3. VS stable on RA. Up with family assistance. Neuro checks and CSM intact. Dressing to back CDI. Recieves percocet and flexeril for pain control with good relief. Plan is for possible D/C to home with home health on Friday. PICC to [facility]. Pt does not wish to be woken up for 0700 accucheck. at bedside.
--- NOTE | 2016-07-08 09:55 | NUR ---
0485 Followed up with patient and his about discharge planning. They really want to get home today. Okay to send referral to [facility]. [place]erred [place] pharmacy for the IV abx, explained they might not be able to fill the order and would have to come from a specialty pharmacy. No other discharge needs. 1055 Spoke to Mechelle at [facility] #[phone], faxed referral #[phone]. They prefer [facility] for pharmacy use, quick service. Asked patient if [facility] was okay? Yes. 1100 Called [facility] #[phone] and spoke to Jenny. Faxed information but no orders yet #[phone]. 1141 Updated nurse Asa. 1245 Jenny called with some questions which I answered. The drug will be $25 a week charged to the family. Should not be any other charges due to out of pocket being meet. 1420 Called [facility] to make sure they didn't have any questions? No. 1425 Went over financial piece with patient and , they had no concerns. Also made sure they didn't need any dressing supplies? They said no, they have what they need already at home and knows what to do. They did ask if scripts could be sent to pharmacy from Dr. Arias. Checked chart and no orders on the chart. Explained this to family. When Dr Solomon write orders/meds those will be given to patient and they can take them to the pharmacy of their choice. could run those to [facility] while we get patient ready for discharge. Voiced understanding. 1625 Orders done, faxed to [facility] and [facility]. Called [facility] and Pharmacist Sharad has no questions after looking thru the orders. Medication will be there before noon tomorrow.
[2016-07-08] MEDS ORDERED: VALIUM10 MG PO (17:00)
[2016-07-08] MEDS ORDERED: PRILOSEC20 MG PO (17:00)
[2016-07-08] MEDS ORDERED: CLARITIN10 MG PO (17:00)
[2016-07-08] MEDS ORDERED: CUBICIN (NON-F500 MG IV (17:02)
[2016-07-08] MEDS ORDERED: RIFADIN, RIMAC300 MG PO (17:04)
[2016-07-08] MEDS ORDERED: DULCOLAX10 MG R (17:07)
[2016-07-08] MEDS ORDERED: FLEXERIL10 MG PO (17:08)
--- NOTE | 2016-07-08 18:40 | NUR ---
DISCHARGE: Pt. and were explained discharge instructions, educated on lami d/c, picc care, wound care, and new medications. Verbalized understanding. Concerned about continuing statin while on antibiotic. Was encouraged to follow up with pharmacist or provider in AM. Left with all belongings and prescriptions. Taken to front door by aide and driven home by . PICC in place for antibiotic therapy with home health.
--- NOTE | 2016-07-08 19:29 | NUR ---
Significant Event: A & O, VSS, afebrile, room air. Plans to DC to home with home infusion. R) PICC line in place, good blood return, flushes easily. Showered today. Dressing to back CDI. Ambulates well with walker. No sliding scale insulin given.
[2016-07-31] MEDS ORDERED: GABAPENTIN300 MG PO (16:12)
[2016-07-31] MEDS ORDERED: OXYCODONE HCL10 MG PO (16:13)
[2016-07-31] MEDS ORDERED: IRON325 M1 PO (16:14)
[2016-07-31] MEDS ORDERED: WARFARIN SODIUM10 MG PO (16:16)
[2016-07-31] MEDS ORDERED: COUMADIN ** IA5 MG PO (16:16)
[2016-07-31] MEDS ORDERED: LOVENOX SUB-Q (16:17)
== END 2016-07-08 18:45 | disposition home health service (06) | DRG 857 ==
LOC: GMED 21:10 → G3N 23:10 → GMSU 06-29 15:32 → G3N 07-01 12:12 → GMSU 07-05 16:21
PROVIDERS: Emergency Medicine; Family Medicine; Neurological Surgery; ADMIT Neurological Surgery
PROC: 0J970ZZ Drainage of Back Subcutaneous Tissue and Fascia, Open Approach (ICD-10-PCS; principal; 2016-06-27)
PROC: 0PP Upper Bones, Removal (ICD-10-PCS; 2016-07-01)
PROC: 0J970ZZ Drainage of Back Subcutaneous Tissue and Fascia, Open Approach (ICD-10-PCS; 2016-07-01)
PROC: 02HV33Z Insertion of Infusion Device into Superior Vena Cava, Percutaneous Approach (ICD-10-PCS; 2016-07-01)
PROC: 0JQ70ZZ Repair Back Subcutaneous Tissue and Fascia, Open Approach (ICD-10-PCS; 2016-07-05)
DX: T81.4XXA Infection following a procedure, initial encounter (principal); Z68.41 Body mass index [BMI] 40.0-44.9, adult; G47.34 Idiopathic sleep related nonobstructive alveolar hypoventilation; B95.7 Other staphylococcus as the cause of diseases classified elsewhere; E11.9 Type 2 diabetes mellitus without complications; E78.5 Hyperlipidemia, unspecified; Y83.2 Surgical operation with anastomosis, bypass or graft as the cause of abnormal reaction of the patient, or of later complication, without mention of misadventure at the time of the procedure; E66.01 Morbid (severe) obesity due to excess calories; R12 Heartburn; Z98.1 Arthrodesis status; Z79.84 Long term (current) use of oral hypoglycemic drugs; Z87.891 Personal history of nicotine dependence; K59.00 Constipation, unspecified
CPT/HCPCS: C1751; J0690; J0744; J0878; J1100; J1885; J2270; J2405; J2765; J3010; J3480; J7030; J7040; J7050

== ENCOUNTER → 2016-07-31 | Outpatient (CLI) | payer BC ==
[~2016-07-31] MED LIST changes: +CLARITIN10 MG PO; +COUMADIN ** IA5 MG PO; +CUBICIN (NON-F500 MG IV; +DULCOLAX10 MG R; +FLEXERIL10 MG PO; +GABAPENTIN300 MG PO; +IRON325 M1 PO; +KEFLEX500 MG PO; +LOVENOX SUB-Q; +MILK OF MA400 MG/5 M PO; +OMEPRAZOLE40 MG PO; +OXYCODONE HCL10 MG PO; +PRILOSEC20 MG PO; +RIFADIN, RIMAC300 MG PO; +VALIUM10 MG PO; +WARFARIN SODIUM10 MG PO
== END | disposition disaster alternative care site (69) ==
LOC: GOPD 15:40
PROC: 009Y3ZZ Drainage of Lumbar Spinal Cord, Percutaneous Approach (ICD-10-PCS; principal; 2016-07-31)
DX: T81.89XA Other complications of procedures, not elsewhere classified, initial encounter (principal)